=== PATIENT | male | born 1985 | race African-American/Black ===

== ENCOUNTER 2019-04-22 06:07 | Day surgery (SDC) | payer BC, OTHER ==
[2019-04-21 08:47] VITALS: BMI 23.7
[2019-04-22] MEDS ORDERED: LIDOCAINE HCL 1%, 10 MG/ML (20ML VIAL) ONE (07:43)
[2019-04-22] MEDS ORDERED: MIDAZOLAM HCL 2 MG/2 ML SINGLE DOSE VIAL ONE (08:17)
[2019-04-22] MEDS ORDERED: PROPOFOL 20 ML ONE ×3 (08:17)
[2019-04-22] MEDS ORDERED: ceFAZolin SODIUM 1 GM VIAL IVPB ONE (08:28)
[2019-04-22] MEDS ORDERED: ceFAZolin SODIUM 1 GM VIAL ONE (08:33)
[2019-04-22] MEDS ORDERED: LIDOCAINE 1%/EPI 1:100000 (20 ML MULTI DOSE VIAL) IJ ONE (08:36)
[2019-04-22] MEDS ORDERED: BUPIVACAINE HCL/PF 0.5% (5 MG/ML) 30 ML VIAL IJ ONE (08:36)
[2019-04-22] MEDS ORDERED: ONDANSETRON 4 MG/2 ML VIAL IVPUSH PRN (09:09)
[2019-04-22] MEDS ORDERED: ACETAMINOPHEN 325 MG TABLET (FP) PO PRN (09:09)
[2019-04-22] MEDS ORDERED: oxyCODONE HCL 5 MG TABLET PO PRN (09:09)
[2019-04-22 10:43] VITALS: BP 119/76; PULSE 50; TEMP 97.6
--- NOTE | 2019-04-22 10:56 | OP ---
DATE OF OPERATION: 04/22/2019 SURGICAL ATTENDING: Dung Retana MD PREOPERATIVE DIAGNOSIS: Right thigh mass. POSTOPERATIVE DIAGNOSIS: Right thigh mass. ANESTHESIA: Local with sedation. PROCEDURE: Right thigh mass excision. DESCRIPTION OF PROCEDURE: The patient was taken into the operating room, placed in a supine position, given IV sedation, IV antibiotics, prepped and draped in the usual sterile fashion. Local anesthesia was administered, and a longitudinal incision was made over the right lateral thigh mass. This was carried down to subcutaneous tissues. A fatty mass was identified, dissected free from surrounding tissues, and removed. It was measured at 4 cm. Hemostasis was achieved with electrocautery. The wound was then closed in 2 layers. Dermabond was placed. The patient was then awakened and taken to recovery in stable condition. Dr. Retana, the attending surgeon, was present throughout the entire procedure. DUNG RETANA M.D. [id number]
--- NOTE | 2019-04-27 14:33 | PATH ---
Surgical Pathology Report Patient Name: JULIETTE GEE [facility]. Rec. #: [id number] /Age/Gender: 1985 (Age: 34) / M Account: [id number] Location: [facility] SURGICAL Taken: 04/22/2019 Received: 04/22/2019 Reported: 04/27/2019 Physicians: Robert Mobley M.D. Specimen(s) Received RIGHT THIGH MASS Clinical History Right thigh mass, 4 cm Final Diagnosis THIGH MASS, RIGHT, EXCISION: MATURE FIBROADIPOSE TISSUE CONSISTENT WITH LIPOMA. Electronically Signed Serina Miranda M.D. Gross Description Received in formalin labeled "right thigh mass," is a 4.0 x 2.8 x 1.5 cm portion of yellow, lobulated adipose tissue. Sectioning reveals homogeneous yellow, smooth fat. No areas of hemorrhage or necrosis are identified. The entire is specimen submitted in 5 cassettes. DL/04/22/2019 saudi/04/22/2019
== END 2019-04-22 10:40 | disposition home or self-care (01) ==
LOC: JASU-SURG 06:07
PROVIDERS: ATTEND Surgery
PROC: 0JBL0ZZ Excision of Right Upper Leg Subcutaneous Tissue and Fascia, Open Approach (ICD-10-PCS; principal; 2019-04-22 08:00)
DX: D21.21 Benign neoplasm of connective and other soft tissue of right lower limb, including hip (principal)
CPT/HCPCS: 88304-TC; 94760